=== PATIENT | male | born 2000 | race Caucasian/White ===

== ENCOUNTER 2024-03-02 00:25 | Emergency (ER) | payer OTHER, SELFPAY ==
[2024-03-02 00:25] VITALS: BMI 29.0
[2024-03-02 00:28] VITALS: BP 128/91
--- NOTE | 2024-03-02 00:41 | ED.SKININJ ---
HPI-Injury
General
Chief Complaint: Bite
Time Seen by Provider: 03/02/24 00:41
Travel History
Have you had any contact with someone who has COVID-19?: No
Do you have any symptoms of coronavirus? Fever > 100 degrees, chills, cough, shortness of breath, sore throat, loss of taste or smell, muscle aches, or headache?: No
History of Present Illness-Injury
Initial Injury comments:
HPI: While patient was outside, an animal bit his right forearm. He thinks it may have been a small dog in their apartment complex but he is not sure. There is some ongoing scant bleeding noted.
EXAM:
GENERAL: Well appearing in no distress
HEENT: Moist oral mucosa
NEUROLOGIC: Excellent strength all extremities, no coordination deficits
PSYCHIATRIC: Appropriate mental status, normal insight and judgement
EXTREMITIES: There are old appearing scars/wounds to the left upper extremity, there is an acute bite wound to the right mid forearm with scant bleeding; distal NVI
SKIN: As above
TIME OF INITIAL ENCOUNTER: 12:50 AM
NUMBER AND COMPLEXITY OF PROBLEMS ADDRESSED AT THE ENCOUNTER
� Chronic conditions affecting care: Anxiety/depression
� Acute Exacerbation and/or Progression of Chronic Illness: This is an acute problem
� Differential Diagnosis includes: Animal bite wound, possible rabies exposure
AMOUNT AND/OR COMPLEXITY OF DATA TO BE REVIEWED AND ANALYZED
� I performed an independent evaluation of and my interpretation is:
EKG:
CT:
X-rays:
Laboratory Studies:
Other:
� Review of other/old records: I reviewed records when patient was here in e did not receive rabies vaccination
� Clinical information was obtained by an independent historian: I spoke to the mother at bedside
� Prescriptions/Medications Considered but not given:
� Further testing considered but not performed:
RISK OF COMPLICATIONS AND/OR MORBIDITY OR MORTALITY OF PATIENT MANAGEMENT
� Social determinants of health affecting care: Lives at home
� Discussion with other providers:
� Escalation of care including admission/observation vs risk of discharge considered: I irrigated the wound with saline, the wound was also cleaned with ChloraPrep. We are starting him on rabies vaccination and immunoglobin was
also given into the wound. Will start Augmentin as well. I personally placed two thirds of the the rabies immunoglobulin dose into the wound
Past History
Past History
ED Past Medical History: Psychiatric
ED Past Surgical History: None
Social History
Tobacco: Former smoker
Alcohol: Occasional
Drug: None
Personal: Single
Living: with family
Employment: Employed
Phy Exam
Physical Exam
Physical Exam:
See HPI
Course
Orders/Labs/Results
Orders:
Orders
03/02/24 00:49
Amoxicillin 875 mg/Clav 125 mg [Augmentin 875 mg/125 mg] 1 tablet PO NOW STA
03/02/24 01:02
Rabies Immune Globulin/Pf [HyperRAB] 1,780 unit IM NOW STA
03/02/24 01:15
Rabies Vaccine (Pcec)/Pf [Rabavert Rabies Vacc W-Diluent] 2.5 unit IM .ONCE ONE
Vital Signs
Initial and Last Documented VS:
Initial Vital Signs
Temp Pulse Resp BP Pulse Ox
98.7 F 104 16 128/91 99
03/02/24 00:28 03/02/24 00:28 03/02/24 00:28 03/02/24 00:28 03/02/24 00:28
Last Documented Vital Signs
Temp Pulse Resp BP Pulse Ox
98.7 F 104 16 128/91 99
03/02/24 00:28 03/02/24 00:28 03/02/24 00:28 03/02/24 00:28 03/02/24 00:28
*Critical Care Note
Total Time (30-74mins, 75-104mins- exclusive of procedures): Not Applicable
ED Attending Note
-
Portions of this chart may have been created with voice recognition software.� Occasional wrong word or��sound alike� substitutions may have occurred due to the inherent limitations of voice recognition software.
Discharge Plan
Departure
Patient Disposition: Home (Routine Discharge)
Date of Disposition: 03/02/24
Time of Disposition: 00:54
Patient with high blood pressure during this ER visit?: Yes
Discharge Problem:
Animal bite
Instructions: Animal Bites (DC), Rabies
Prescriptions:
New
rabies vacc,human diploid (PF) 2.5 unit recon soln
2.5 unit IM ONCE Qty: 1 2RF
amoxicillin-pot clavulanate 875-125 mg tablet
1 tab PO BID Qty: 10 0RF
No Action
Medical Marijuana
2 - 3 puff inhalation HSPRN PRN (Reason: sleep)
amoxicillin-pot clavulanate 875-125 mg tablet
1 tab PO BID Qty: 20 0RF
Referrals:
UNKNOWN - PT DOES,NOT KNOW [Unknown Provider] -
Activity Restrictions/Additional Instructions:
Rabies shots: March 02, March 05, March 10, and March 17�for the final 3 doses, call [phone] (outpatient infusion department). Take prescription with you. I also sent a prescription to your pharmacy for Augmentin. Return here if worse.
Interventions
Interventions:
*Risk Screen - Suicide Last Done: 03/02/24 00:28
*General Assessment Last Done: 03/02/24 00:28
*Neglect/Abuse Screening Last Done: 03/02/24 00:28
ED- Fall Risk Assessment Last Done: 03/02/24 01:51
*ED COVID-19 Vaccine History Last Done: 03/02/24 00:49
*Nursing Disposition Last Done: 03/02/24 01:51
ED-Skin Assessment Last Done: 03/02/24 00:49
Discharge Date and Time
Discharge Date/Time: 03/02/24 01:53
Print Language: SINHALA
[2024-03-02] MEDS: AUGMENTIN 875 MG/125 MG 1 TABLET PO (01:02)
[2024-03-02] MEDS: RABAVERT RABIES VACC W-DILUENT 2.5 UNIT IM (01:34)
[2024-03-02] MEDS: HyperRAB 1780 UNIT IM (01:41)
== END 2024-03-02 01:53 | disposition home or self-care (01) ==
LOC: EMR 00:25
PROVIDERS: EMERGENCY PHYSICIAN Emergency Medicine; FAMILY PHYSICIAN Internal Medicine
DX: S41.151A Open bite of right upper arm, initial encounter (principal); W54.0XXA Bitten by dog, initial encounter; Z87.891 Personal history of nicotine dependence; Z23 Encounter for immunization
CPT/HCPCS: 99284; 90471; 96372; 90375; 90675

== ENCOUNTER 2024-03-17 13:07 | Outpatient (RCR) | payer OTHER, SELFPAY ==
[2024-03-05 14:22] VITALS: BP 102/61
[2024-03-05] MEDS: RABAVERT RABIES VACC W-DILUENT 2.5 UNIT IM (14:32)
[2024-03-10 10:47] VITALS: BP 131/68
[2024-03-10] MEDS: RABAVERT RABIES VACC W-DILUENT 2.5 UNIT IM (10:51)
[2024-03-17 13:18] VITALS: BP 111/63
[2024-03-17] MEDS: RABAVERT RABIES VACC W-DILUENT 2.5 UNIT IM (13:27)
== END 2024-03-18 09:48 | disposition home or self-care (01) ==
LOC: OID 13:07
PROVIDERS: ATTENDING PHYSICIAN Emergency Medicine; PRIMARYCARE PHYSICIAN Internal Medicine
DX: Z20.3 Contact with and (suspected) exposure to rabies (principal); Z23 Encounter for immunization
CPT/HCPCS: 90471; 90675

== ENCOUNTER 2024-09-01 11:07 | Emergency (ER) | payer BC, SELFPAY ==
[2024-09-01 11:10] VITALS: BP 85/65
[2024-09-01 11:16] VITALS: BP 124/93
[2024-09-01 12:03] VITALS: BMI 24.4
[2024-09-01] MEDS: AUGMENTIN 875 MG/125 MG 1 TABLET PO (13:24)
[2024-09-01] MEDS: MOTRIN 400 MG PO (13:24)
[2024-09-01] MEDS: PERCOCET 5/325 1 TABLET PO (13:24)
--- NOTE | 2024-09-01 13:39 | ED.SKININJ ---
HPI-Injury
General
Chief Complaint: Bite
Source: patient
Exam Limitations: none
Time Seen by Provider: 09/01/24 12:41
Nursing documentation reviewed up to this point in time: agreed with
History of Present Illness-Injury
Is this injury a work related problem?: No
Is pt an associate of [facility]?: No
Initial Injury comments:
Patient presents to ED secondary to multiple dog bite injury, from his own pitbull, shortly prior to arrival. Patient states that similar incident has happened in the past, and he had been contemplating about taking the dog and having to rest
recently. Patient has multiple wounds to his left inner thigh, left forearm, as well as puncture darrin to his right knee. Patient's vaccinations, including tetanus is up-to-date. Patient's dog's vaccinations are up-to-date as well.
Past History
Past History
ED Past Medical History: Psychiatric
ED Past Surgical History: None
Social History
Tobacco: Former smoker
Alcohol: Occasional
Drug: None
Personal: Single
Living: with family
Employment: Employed
Review of Systems
Review of Systems
Allergies reviewed?: Yes
All Other Systems: ROS reviewed and negative except as documented in HPI and ROS
Constitutional: Reports no symptoms
Musculoskeletal: Reports joint pain
Skin: Reports other (dog bite/laceration)
Neurological: Reports no symptoms
Phy Exam
Physical Exam
Physical Exam:
Physical Exam
General: mild distress, not acutely ill. afebrile
Head: nc/at. eomi
Neck: supple. normal range of motion
Neuro: alert and oriented. no focal neurological deficits
Skin: an approx 2cm superficial laceration noted over left inner thigh without active bleeding. left wrist: multiple less than 5mm superficial laceration noted over volar surface without active bleeding. punctured
gardner noted over right patella without separation/bleeding
Psychiatric: well kept. interactive and cooperative
Extremities: no edema. no calf tenderness.
Course
Orders/Labs/Results
Orders:
Orders
09/01/24 13:09
Amoxicillin 875 mg/Clav 125 mg [Augmentin 875 mg/125 mg] 1 tablet PO NOW STA
Ibuprofen [Motrin] 400 mg PO NOW STA
Oxycodone/Acetaminophen [Percocet 5/325] 1 tablet PO NOW STA
Vital Signs
Initial and Last Documented VS:
Initial Vital Signs
Temp Pulse Resp BP Pulse Ox
98.5 F 75 18 85/65 100
09/01/24 11:10 09/01/24 11:10 09/01/24 11:10 09/01/24 11:10 09/01/24 11:10
Last Documented Vital Signs
Temp Pulse Resp BP Pulse Ox
97.8 F 68 20 124/93 99
09/01/24 11:16 09/01/24 15:29 09/01/24 15:29 09/01/24 15:29 09/01/24 11:16
Procedures
Laceration Closure
Left Medial Thigh:
Status of Wound: clean
Size of Wound in cm: 3
Description of Wound Edges: sharp
Preparation: cleaned with saline
Anesthesia: 1% Lidocaine
Revision/Debridement: routine- no revision
Type of Closure: single layer closure
Skin Closure Material: 4-0 nylon
Number of sutures: 3
Left Volar Wrist:
Status of Wound: clean
Size of Wound in cm: 1
Description of Wound Edges: sharp
Preparation: cleaned with saline
Anesthesia: 1% Lidocaine
Revision/Debridement: routine- no revision
Type of Closure: single layer closure
Skin Closure Material: 5-0 nylon
Number of sutures: 5
MDM/Problems Addressed
MDM/Problems Addressed:
Wound well-approximated with suture placement. Patient started on Augmentin prophylactically, with recommendation to follow-up with his PCP for reevaluation, including suture removal in 7 to 10 days. Patient is otherwise hemodynamically stable,
neurologically intact, and without acute distress, at time of discharge, to the care of his family.
*Critical Care Note
Total Time (30-74mins, 75-104mins- exclusive of procedures): Not Applicable
ED Attending Note
-
Portions of this chart may have been created with voice recognition software.� Occasional wrong word or��sound alike� substitutions may have occurred due to the inherent limitations of voice recognition software.
Discharge Plan
Departure
Patient Disposition: Home (Routine Discharge)
Date of Disposition: 09/01/24
Time of Disposition: 13:48
Patient with high blood pressure during this ER visit?: Yes
Condition: Good
Discharge Problem:
Dog bite, Laceration
Instructions: Animal Bites (DC), Wound Care (DC), Laceration Repair With Stitches (DC)
Prescriptions:
New
amoxicillin-pot clavulanate 875-125 mg tablet
1 tab PO BID Qty: 5 0RF
oxycodone-acetaminophen [Percocet] 5-325 mg Tablet
1 tab PO Q6HPRN PRN (Reason: pain) Qty: 8 0RF
No Action
Medical Marijuana
2 - 3 puff inhalation HSPRN PRN (Reason: sleep)
rabies vacc,human diploid (PF) 2.5 unit recon soln
2.5 unit IM ONCE Qty: 1 2RF
Referrals:
Cristian Aparicio MD [Family Provider] -
Activity Restrictions/Additional Instructions:
As discussed, please follow-up with your primary care physician for reevaluation, including suture removal in 7 to 10 days. Your prescriptions have been sent electronically to [facility] pharmacy in [place].
Interventions
Interventions:
*Risk Screen - Suicide Last Done: 09/01/24 11:22
*General Assessment Last Done: 09/01/24 15:29
*Neglect/Abuse Screening Last Done: 09/01/24 11:50
*Nursing Disposition Last Done: 09/01/24 15:29
ED-Skin Assessment Last Done: 09/01/24 12:04
Discharge Date and Time
Discharge Date/Time: 09/01/24 15:30
Print Language: [email or web address]
[2024-09-01 15:29] VITALS: BP 124/93
== END 2024-09-01 15:30 | disposition home or self-care (01) ==
LOC: EMR 11:07
PROVIDERS: EMERGENCY PHYSICIAN Emergency Medicine; FAMILY PHYSICIAN Internal Medicine
DX: S71.112A Laceration without foreign body, left thigh, initial encounter (principal); S61.512A Laceration without foreign body of left wrist, initial encounter; S81.031A Puncture wound without foreign body, right knee, initial encounter; W54.0XXA Bitten by dog, initial encounter; Z87.891 Personal history of nicotine dependence
CPT/HCPCS: 12002; 99283